=== PATIENT | female | born 1950 | race Caucasian/White ===

== ENCOUNTER 2018-12-12 10:41 | Day surgery (SDC) | payer MEDICARE, BC ==
[2018-12-11 16:54] VITALS: BMI 25.8
[2018-12-12] MEDS ORDERED: Fentanyl 100 MCG/2 ML VIAL ONE (12:31)
--- NOTE | 2018-12-12 14:50 | MRI ---
MRI THORACIC SPINE NONCONTRAST: HISTORY: Back pain. Thoracic radiculopathy. FINDINGS: Vertebral body heights and alignment are maintained. Degenerative changes of the lower cervical spin e are apparent on the sagittal images. A large hemangioma is noted within the T11 vertebral body. Mild osteophytosis. Minimal posterior disk bulges at the T2-T3 and T3-T4 levels. No focal disk jamia iation. The central canal and neural foramina are patent. 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 IMPRESSION: Very mild degenerative changes of the thoracic spine. No focal disk herniation or nerve root tori srinivas. POS: [facility]
--- NOTE | 2018-12-12 15:05 | MRI ---
MRI LUMBAR SPINE WITHOUT CONTRAST: INDICATIONS: Back pain. Lumbar radiculopathy. TECHNIQUE: Multiplanar, multisequential imaging of the lumbar spine is obtained. FINDINGS: The lumbar vertebrae maintain height. Minimal posterior listhesis at the L1-L2 and at L2-L3 levels i s noted. There is loss of disk space at L1-L2 and at L2-L3 with anterior osteophytes at both these l evels. The L3-L4, L4-L5, and L5-S1 disk spaces are normally preserved, and alignment is maintained at these levels. At L1-L2, there is a broad-based disk bulge associated with a slight posterior listhesis, which cuca ens the thecal sac. Mild facet arthrosis and hypertrophy. Very mild central canal stenosis. At L2-L3, broad-based disk bulge associated with minimal retrolisthesis flattens the anterior thecal sac. Mild facet hypertrophy. Very mild central canal stenosis is also present at this level. No significant disk bulge is seen at L3-L4, L4-L5, or L5-S1. Mild facet arthrosis at these levels; h owever, no central canal or foraminal stenosis. IMPRESSION: There are degenerative disk changes at L1-L2 and at L2-L3 with loss of disk space and hypertrophic sp urring from the vertebral bodies anteriorly at this level. Mild diffuse disk bulge is seen at both t hese levels, as described. The bulge is slightly more prominent at L1-L2. POS: [facility]
--- NOTE | 2018-12-12 18:04 | RAD ---
CERVICAL SPINE THREE VIEWS: 12/12/18 HISTORY: Thoracic radiculopathy, numbness in hands and feet. Exam includes flexion and extension lateral views. Extensive disc osteophytosis at C5-C6. Generalized facet arthrosis. No prevertebral soft tissue swell ing. No evidence for abnormal translation between flexion and extension. IMPRESSION: Severe disc osteophytosis at C5-C6. Generalized spondylosis. POS: [facility]
== END 2018-12-12 15:00 | disposition home or self-care (01) ==
LOC: SDC/OP 10:41 → EDSTATUS 13:00 → SDC/OP 15:00
PROVIDERS: ATTEND Neurological Surgery
DX: M51.14 Intervertebral disc disorders with radiculopathy, thoracic region (principal); M51.16 Intervertebral disc disorders with radiculopathy, lumbar region; D18.09 Hemangioma of other sites; M47.812 Spondylosis without myelopathy or radiculopathy, cervical region; F41.9 Anxiety disorder, unspecified; M19.90 Unspecified osteoarthritis, unspecified site; G60.9 Hereditary and idiopathic neuropathy, unspecified; Z79.899 Other long term (current) drug therapy
CPT/HCPCS: 72040; 72146; 72148; J3010

== ENCOUNTER 2018-12-25 08:51 | Day surgery (SDC) | payer MEDICARE, BC ==
[2018-12-24 10:40] VITALS: BMI 24.2
[2018-12-25 10:25] VITALS: BP 138/77; TEMP 98.7
[2018-12-25 11:19] LABS: Color Of CSF Supernatant COLORLESS (Colorless); Tube # 2; Unspun CSF Color COLORLESS (Colorless)
[2018-12-25 11:20] LABS: CSF, Glucose 52 mg/dl (40-70); CSF, Protein 34 mg/dL (15-40)
[2018-12-25 11:23] LABS: CSF Source CSF; Clarity Clear (Clear)
[2018-12-25 11:24] LABS: RBC Count - Manual 0 /cumm (None Seen); Tube # 4; WBC/NonHematics Count - Manual 0 /cumm (0-5)
--- NOTE | 2018-12-25 14:00 | RAD ---
LUMBAR PUNCTURE: HISTORY: Numbness from the waist down. COMPARISON: None. FINDINGS: Two view hand cigar maker lumbar spine radiograph demonstrates 5 lumbar-type vertebral bodies. Vertebral body h eight is maintained. There is no fracture. Successful lumbar puncture. Opening pressure of 10 mm of water. There are no immediate or postproce dure complications. A total of 9 cc of clear CSF was collected. TECHNIQUE: Consent was obtained to perform a lumbar puncture with fluoroscopic guidance. The patient's back was evaluated. The L3-L4 level deemed appropriate. The skin was prepped and draped in sterile fashion . 1% Lidocaine, buffered with sodium bicarbonate, was used for local anesthesia. Under fluoroscopic guidance, a 22-gauge spinal needle was advanced to the CSF space. The inner stylette was removed. Prompt flow of clear CSF to the hub of the needle. Opening pressure was determined. A total of 9 cc of clear CSF was collected. The patient tolerated the procedure well. No immediate or postprocedur e complication. Incidental calcification of the T12-L1 disk. IMPRESSION: 1. Successful lumbar puncture. 9 cc of clear cerebrospinal fluid was acquired. 2. 10 mm of water opening pressure. POS: [facility]
== END 2018-12-25 12:15 | disposition home or self-care (01) ==
LOC: RAD 08:51
PROVIDERS: ATTEND Neurological Surgery
PROC: 009U3ZX Drainage of Spinal Canal, Percutaneous Approach, Diagnostic (ICD-10-PCS; principal; 2018-12-25)
PROC: B01B1ZZ Fluoroscopy of Spinal Cord using Low Osmolar Contrast (ICD-10-PCS; 2018-12-25)
DX: R20.0 Anesthesia of skin (principal); M19.90 Unspecified osteoarthritis, unspecified site; G60.9 Hereditary and idiopathic neuropathy, unspecified; M50.20 Other cervical disc displacement, unspecified cervical region; M48.02 Spinal stenosis, cervical region; Z79.899 Other long term (current) drug therapy
CPT/HCPCS: 62270; 82945; 84157; 89051

== ENCOUNTER 2021-07-20 13:57 | Outpatient (CLI) | payer MEDICARE, BC ==
[2021-07-21 13:06] LABS: SARS-CoV-2 PCR by NAA Not Detected (NotDetected)
== END 2021-07-20 13:58 | disposition home or self-care (01) ==
LOC: LABBT 13:57
PROVIDERS: ATTEND Ophthalmology Retina Specialist
DX: Z01.812 Encounter for preprocedural laboratory examination (principal); H35.342 Macular cyst, hole, or pseudohole, left eye; Z20.822 Contact with and (suspected) exposure to COVID-19
CPT/HCPCS: U0003; U0005

== ENCOUNTER → 2021-08-03 | Outpatient (CLI) | payer MEDICARE, BC ==
[2021-08-04 09:11] LABS: SARS-CoV-2 PCR by NAA Not Detected (NotDetected)
== END ==
LOC: LABBT 08:00
PROVIDERS: ATTEND Ophthalmology Retina Specialist
DX: Z01.812 Encounter for preprocedural laboratory examination (principal); H35.342 Macular cyst, hole, or pseudohole, left eye; H54.7 Unspecified visual loss; Z20.822 Contact with and (suspected) exposure to COVID-19
CPT/HCPCS: U0003; U0005

== ENCOUNTER 2021-08-08 06:11 | Day surgery (SDC) | payer MEDICARE, BC ==
[2021-08-07 12:14] VITALS: BMI 21.6
[2021-08-08] MEDS ORDERED: EPINEPHrine 0.3 MG in Ophthalmic Irrigation Solution 500 ML IRR SCH (06:30)
[2021-08-08] MEDS ORDERED: Maxitrol 0.1% Opth Oint 3.5 GM TUBE ONE (07:15)
[2021-08-08] MEDS ORDERED: Lidocaine 1% PF 5 ML VIAL ONE (07:15)
[2021-08-08] MEDS ORDERED: CEFAZOLIN 1 GM VIAL ONE (07:15)
[2021-08-08] MEDS ORDERED: Lidocaine 4% PF 5 ML AMP ONE (07:15)
[2021-08-08] MEDS ORDERED: Bupivacaine PF 0.75% SDV 10 ML ONE (07:15)
[2021-08-08] MEDS ORDERED: Triamcinolone 40 MG/ML VIAL ONE (07:15)
[2021-08-08] MEDS ORDERED: PROPOFOL 200 MG/20 ML VIAL ONE (07:15)
[2021-08-08] MEDS ORDERED: Indocyanine Green 25 MG/10 ML VIAL ONE (07:15)
== END 2021-08-08 09:05 | disposition home or self-care (01) ==
LOC: SDC 06:11
PROVIDERS: ATTEND Ophthalmology Retina Specialist
PROC: 08T53ZZ Resection of Left Vitreous, Percutaneous Approach (ICD-10-PCS; principal; 2021-08-08)
PROC: 08NF3ZZ Release Left Retina, Percutaneous Approach (ICD-10-PCS; 2021-08-08)
DX: H35.342 Macular cyst, hole, or pseudohole, left eye (principal); Z79.01 Long term (current) use of anticoagulants; Z79.899 Other long term (current) drug therapy; Z88.5 Allergy status to narcotic agent; Z96.1 Presence of intraocular lens
CPT/HCPCS: 67025; J0171; J0690; J2704; J3301; J3490

== ENCOUNTER 2022-03-13 11:47 | Outpatient (CLI) | payer MEDICARE, BC | END 2022-03-13 11:48 | disposition home or self-care (01) | LOC: BICRAD 11:47 | PROVIDERS: ATTEND Physician Assistant Medical | DX: L30.9 Dermatitis, unspecified (principal) | CPT/HCPCS: 71046 ==

== ENCOUNTER 2023-06-06 10:00 | Outpatient (CLI) | payer MEDICARE, BC ==
[2023-06-06] MEDS ORDERED: Iopamidol 370 76% 100 ML VIAL ONE (15:11)
== END 2023-06-06 10:01 | disposition home or self-care (01) ==
LOC: RAD 10:00 → CT 10:01
PROVIDERS: ATTEND Psychiatry & Neurology Neurology
DX: R93.89 Abnormal findings on diagnostic imaging of other specified body structures (principal); D17.71 Benign lipomatous neoplasm of kidney; K80.20 Calculus of gallbladder without cholecystitis without obstruction; R91.1 Solitary pulmonary nodule; R59.0 Localized enlarged lymph nodes; N83.8 Other noninflammatory disorders of ovary, fallopian tube and broad ligament
CPT/HCPCS: 74178; 82565; Q9967

== ENCOUNTER 2023-07-04 11:00 | Outpatient (CLI) | payer MEDICARE, BC | END 2023-07-04 11:01 | disposition home or self-care (01) | LOC: PET 11:00 | PROVIDERS: ATTEND Internal Medicine Hematology & Oncology | DX: R19.09 Other intra-abdominal and pelvic swelling, mass and lump (principal); C57.4 Malignant neoplasm of uterine adnexa, unspecified; R59.0 Localized enlarged lymph nodes | CPT/HCPCS: 78815; A9552 ==

== ENCOUNTER 2023-09-25 12:30 | Outpatient (CLI) | payer MEDICARE, BC | END 2023-09-25 12:31 | disposition home or self-care (01) | LOC: PET 12:30 | PROVIDERS: ATTEND Internal Medicine Hematology & Oncology | DX: C56.1 Malignant neoplasm of right ovary (principal); R59.0 Localized enlarged lymph nodes; N80.30 Endometriosis of pelvic peritoneum, unspecified | CPT/HCPCS: 78815; A9552 ==

== ENCOUNTER → 2023-12-10 | Outpatient (CLI) | payer MEDICARE, BC | LOC: PET 12:30 | PROVIDERS: ATTEND Internal Medicine Hematology & Oncology | DX: C56.1 Malignant neoplasm of right ovary (principal); Z96.89 Presence of other specified functional implants | CPT/HCPCS: 78815; A9552 ==

== ENCOUNTER 2023-12-11 16:47 | Inpatient (IN) | payer MEDICARE, BC ==
[2023-12-11 17:57] LABS: Hemoglobin 8.3 g/dL (12.0-16.0); Manual Diff?? YES; Mean Corpuscular HGB CONC 33.2 g/dL (32.0-36.0); Mean Corpuscular Hemoglobin 30.4 pg (27.0-31.0); Mean Corpuscular Volume 91.6 fl (78.0-98.0); Mean Platelet Volume 11.2 fL (7.4-10.4); Platelet Count 132 10x3/uL (130-400); RBC Distribution Width 19.2 % (11.5-14.5); Red Blood Cell (RBC) Count 2.73 mill/uL (4.20-5.40); White Blood Cell (WBC) Count 15.2 10x3/uL (4.8-10.8)
[2023-12-11 18:15] LABS: PTT 29.1 sec (22.9-36.1)
[2023-12-11 18:16] LABS: INR-International Normal Ratio 1.1; Prothrombin Time 14.6 sec (12.0-14.7)
[2023-12-11 18:30] LABS: Delete Auto Diff?? YES
[2023-12-11 18:37] LABS: ALT (SGPT) 15 U/L (8-55); AST (SGOT) 16 U/L (5-34); Albumin 3.5 g/dL (3.4-4.8); Alkaline Phosphatase 92 U/L (40-110); Anion Gap 13 mmol/L (10-20); BUN (Urea Nitrogen) 16 mg/dL (9.8-20.1); Calc. Creatinine Clearance 0 mL/min (70-130); Calcium 8.7 mg/dL (7.8-10.44); Carbon Dioxide 19 mmol/L (23-31); Chloride 106 mmol/L (98-107); Estimated GFR 45; Globulin 3.1 g/dL (2.4-3.5); Glucose 98 mg/dL (83-110); Protein, Total 6.6 g/dL (5.8-8.1); Sodium 134 mmol/L (136-145)
[2023-12-11 18:58] LABS: Bilirubin, Total 0.3 mg/dL (0.2-1.2)
[2023-12-11 19:07] LABS: Band 18 % (5-11); CellaVision Operator ID LAB.KB; Eosinophils 1 % (0-10); Large Platelets 10.7 % (0-5); Lymphocytes 8 % (21-51); Macrocytosis SLIGHT = 6-15 cells HPF (0-5); Monocytes 14 % (0-10); Neutrophil 59 % (42-75); Ovalocytes SLIGHT = 2-5 cells HPF (0-1); Platelet Adequacy Comment Platelets Normal; Polychromasia SLIGHT = 2-3 cells HPF (0-2); Reactive Lymphocytes 1 % (0-10); Smudge Cells 8.7 %; Total Cell Count 103; Toxic Granulation SLIGHT
[2023-12-11] MEDS ORDERED: Ipratropium/Albuterol 3 ML NEB NEB PRN (19:13)
[2023-12-11] MEDS ORDERED: Ondansetron PF 4 MG/2 ML Vial IVP PRN (19:13)
[2023-12-11 20:52] VITALS: BMI 25.7
[2023-12-11] MEDS: Acetaminophen 325 MG TAB PO SCH (20:53)
[2023-12-11] MEDS: Famotidine/PF 20 mg/2ml Vial SLOW IVP SCH (22:27)
[2023-12-12 05:34] LABS: Hematocrit 24.3 % (36.0-47.0); Manual Diff?? YES; Mean Corpuscular HGB CONC 32.9 g/dL (32.0-36.0); Mean Platelet Volume 11.7 fL (7.4-10.4); Platelet Count 145 10x3/uL (130-400); RBC Distribution Width 19.6 % (11.5-14.5); Red Blood Cell (RBC) Count 2.67 mill/uL (4.20-5.40); White Blood Cell (WBC) Count 16.7 10x3/uL (4.8-10.8)
[2023-12-12 05:39] LABS: Delete Auto Diff?? YES
[2023-12-12 05:57] LABS: Anion Gap 13 mmol/L (10-20); BUN (Urea Nitrogen) 14 mg/dL (9.8-20.1); Calc. Creatinine Clearance 50 mL/min (70-130); Calcium 8.7 mg/dL (7.8-10.44); Carbon Dioxide 19 mmol/L (23-31); Chloride 107 mmol/L (98-107); Estimated GFR 53; Glucose 84 mg/dL (83-110); Potassium 4.1 mmol/L (3.5-5.1); Sodium 135 mmol/L (136-145)
[2023-12-12] MEDS: Levothyroxine Sodium 100 MCG TAB PO SCH (06:33)
[2023-12-12] MEDS: Sodium Chloride 0.9% 1,000 ML IV SCH (06:33)
[2023-12-12 07:32] VITALS: BP 135/71; TEMP 97.8
[2023-12-12 07:37] LABS: Band 9 % (5-11); CellaVision Operator ID LAB.KW3; Eosinophils 3 % (0-10); Large Platelets 4.9 % (0-5); Lymphocytes 7 % (21-51); Monocytes 6 % (0-10); Neutrophil 76 % (42-75); Nucleated RBC (Manual Ct) 1 % (0); Platelet Adequacy Comment Platelets Normal; Polychromasia SLIGHT = 2-3 cells HPF (0-2); RBC Morphology Within Normal Limits; Total Cell Count 102
[2023-12-12] MEDS: Famotidine/PF 20 mg/2ml Vial SLOW IVP SCH (07:52)
[2023-12-12] MEDS: Donepezil HCl 10 MG TAB PO SCH (07:52)
[2023-12-12] MEDS ORDERED: DULoxetine 60 MG CAP PO SCH (21:00)
[2023-12-14] MEDS ORDERED: FLU VACC QS2023(65UP)/MF59C/PF 60 MCG/0.5 ML SYRINGE IM ONE (09:00)
== END 2023-12-12 11:30 | disposition home or self-care (01) | DRG 83 ==
LOC: ERS 16:47 → SURG A 19:19
PROVIDERS: ADMIT Student in an Organized Health Care Education/Training Program; ATTEND Student in an Organized Health Care Education/Training Program
DX: S06.5XAA Traumatic subdural hemorrhage with loss of consciousness status unknown, initial encounter (principal); C56.1 Malignant neoplasm of right ovary; C56.9 Malignant neoplasm of unspecified ovary; W19.XXXA Unspecified fall, initial encounter; G62.9 Polyneuropathy, unspecified; E03.9 Hypothyroidism, unspecified; Z98.890 Other specified postprocedural states; Z88.5 Allergy status to narcotic agent; Z79.01 Long term (current) use of anticoagulants; Y92.009 Unspecified place in unspecified non-institutional (private) residence as the place of occurrence of the external cause; Z96.89 Presence of other specified functional implants
CPT/HCPCS: 36415; 70450; 78815; 80048; 80053; 85025; 85610; 85730; 93005; A9552; J7050; S0028

== ENCOUNTER 2024-05-12 11:45 | Outpatient (CLI) | payer MEDICARE, BC | END 2024-05-12 11:46 | disposition home or self-care (01) | LOC: PET 11:45 | PROVIDERS: ATTEND Internal Medicine Hematology & Oncology | DX: C56.1 Malignant neoplasm of right ovary (principal) | CPT/HCPCS: 78815; A9552 ==

== ENCOUNTER 2024-08-28 10:15 | Outpatient (CLI) | payer MEDICARE, BC | END 2024-08-28 10:16 | disposition home or self-care (01) | LOC: PET 10:15 | PROVIDERS: ATTEND Internal Medicine Hematology & Oncology | DX: C56.1 Malignant neoplasm of right ovary (principal); K80.20 Calculus of gallbladder without cholecystitis without obstruction | CPT/HCPCS: 78815; A9552 ==

== ENCOUNTER 2025-08-26 11:45 | Outpatient (CLI) | payer MEDICARE, BC | END 2025-08-26 11:46 | disposition home or self-care (01) | LOC: PET 11:45 | PROVIDERS: ATTEND Internal Medicine Hematology & Oncology | DX: C56.1 Malignant neoplasm of right ovary (principal); R19.09 Other intra-abdominal and pelvic swelling, mass and lump; R59.0 Localized enlarged lymph nodes; R91.1 Solitary pulmonary nodule; J98.4 Other disorders of lung | CPT/HCPCS: 78815; A9552 ==

== ENCOUNTER 2025-11-09 12:30 | Outpatient (CLI) | payer MEDICARE, BC | END 2025-11-09 12:31 | disposition home or self-care (01) | LOC: PET 12:30 | PROVIDERS: ATTEND Internal Medicine Hematology & Oncology | DX: J96.11 Chronic respiratory failure with hypoxia (principal); C56.1 Malignant neoplasm of right ovary; R59.1 Generalized enlarged lymph nodes; R19.09 Other intra-abdominal and pelvic swelling, mass and lump; E88.9 Metabolic disorder, unspecified | CPT/HCPCS: 78815; A9552 ==